=== PATIENT | female | born 1995 | race Hispanic/Latino ===

== ENCOUNTER 2018-07-13 02:04 | Emergency (ER) | payer SELFPAY ==
[2018-07-13 02:28] VITALS: BMI 38.6
--- NOTE | 2018-07-13 02:34 | ED PDOC ---
Arrival/HPI - General Time Seen by Provider: 07/13/18 02:05 Historian: Patient - History of Present Illness Narrative History of Present Illness (Text): 07/13/18 02:35 22 year old female, with no significant past medical history, presents to the emergency department complaining of right upper abdominal pain that began tonight. Patient denies any fever, chills, chest pain, shortness of breath, nausea, vomiting, diarrhea, urinary symptoms, back pain, neck pain, headache, dizziness, or any other complaints. Time/Duration: Other (tonight) Symptom Onset: Sudden Symptom Course: Unchanged Activities at Onset: Light Context: Home Past Medical History - Provider Review Nursing Documentation Reviewed: Yes Family/Social History - Physician Review Nursing Documentation Reviewed: Yes Family/Social History: No Known Family HX Allergies/Home Meds Allergies/Adverse Reactions: Allergies nitrofurantoin [From Macrobid] Allergy (Verified 07/13/18 02:28) RASH Sulfa (Sulfonamide Antibiotics) Allergy (Verified 07/13/18 02:28) RASH Home Medications: Home Meds Medication Instructions Recorded Confirmed Topiramate [Topamax] 25 mg PO BID 07/13/18 07/13/18 Review of Systems - Physician Review All systems were reviewed & negative as marked: Yes - Review of Systems Constitutional: absent: Fevers, Other (Chills) Respiratory: absent: SOB Cardiovascular: absent: Chest Pain Gastrointestinal: Abdominal Pain. absent: Diarrhea, Nausea, Vomiting Genitourinary Female: absent: Dysuria, Frequency, Hematuria Musculoskeletal: absent: Back Pain, Neck Pain Neurological: absent: Headache, Dizziness Physical Exam Vital Signs Reviewed: Yes Vital Signs Temp Pulse Resp BP Pulse Ox 07/13/18 05:05 98.4 F 58 L 18 118/63 98 07/13/18 04:32 98.2 F 59 L 16 111/52 L 97 07/13/18 03:59 99.2 F 64 16 121/65 100 07/13/18 02:37 99.4 F 80 16 123/73 97 Temperature: Afebrile Blood Pressure: Normal Pulse: Regular Respiratory Rate: Normal Appearance: Positive for: Well-Appearing, Non-Toxic, Comfortable Pain Distress: None Mental Status: Positive for: Alert and Oriented X 3 - Systems Exam Head: Present: Atraumatic, Normocephalic Pupils: Present: PERRL Extroacular Muscles: Present: EOMI Conjunctiva: Present: Normal Mouth: Present: Moist Mucous Membranes Neck: Present: Normal Range of Motion Respiratory/Chest: Present: Clear to Auscultation, Good Air Exchange. No: Respiratory Distress, Accessory Muscle Use Cardiovascular: Present: Regular Rate and Rhythm, Normal S1, S2. No: Murmurs Abdomen: Present: Tenderness (Right upper quadrant). No: Distention, Peritoneal Signs Back: Present: Normal Inspection Upper Extremity: Present: Normal Inspection. No: Cyanosis, Edema Lower Extremity: Present: Normal Inspection. No: Edema Neurological: Present: GCS=15, CN II-XII Intact, Speech Normal Skin: Present: Warm, Dry, Normal Color. No: Rashes Psychiatric: Present: Alert, Oriented x 3, Normal Insight, Normal Concentration Medical Decision Making ED Course and Treatment: 07/13/18 02:34 Impression: 22 year old female presents complaining of right upper abdominal pain that began tonight. Plan: -- Labs -- POC Urine Test -- UA -- reassess and disposition Progress Notes: EXAM: US Abdomen Limited, Right Upper Quadrant Dictated and Authenticated by: Jose Fowler MD 07/13/2018 4:55 AM IMPRESSION: Gallbladder stones are seen largest approximately 8 mm. 07/13/18 05:11 On re-evaluation, patient feels better and is in no acute distress. I have discussed the results and plan with the patient, who expresses understanding. Patient in agreement with plan to be discharged home. Patient is stable for discharge. Patient was instructed to follow up with physician or return if symptoms worsen or new concerning symptoms arise. - Lab Interpretations Microbiology Results: Microbiology Results 07/13/18 02:40 Urine,Clean Catch Urine Culture - Final No Growth (<1,000 CFU/ML) Lab Results: 07/13/18 03:00 07/13/18 03:00 Lab Results 07/13/18 03:00: Sodium 141, Potassium 3.9, Chloride 108 H, Carbon Dioxide 22, Anion Gap 15, BUN 10, Creatinine 0.9, Est GFR ( Amer) > 60, Est GFR (Non- Af Amer) > 60, Random Glucose 98, Calcium 9.5, Magnesium 2.3 H, Total Bilirubin 0.3, AST 19, ALT 20, Alkaline Phosphatase 53, Total Protein 7.5, Albumin 4.2, Globulin 3.3, Albumin/Globulin Ratio 1.3, Lipase 57 07/13/18 03:00: PT 11.6, INR 1.02, APTT 24.6 L 07/13/18 03:00: WBC 6.6, RBC 4.48, Hgb 12.5, Hct 38.1, MCV 85.0, MCH 27.9, MCHC 32.8, RDW 12.9, Plt Count 272, MPV 10.4, Gran % 57.3, Lymph % (Auto) 35.9 H, [place] % (Auto) 5.3, Eos % (Auto) 1.2 L, Baso % (Auto) 0.3, Gran # 3.80, Lymph # ( Auto) 2.4, [place] # (Auto) 0.4, Eos # (Auto) 0.1, Baso # (Auto) 0.02 07/13/18 02:40: Urine Color Light yellow, Urine Appearance Cloudy, Urine pH 6.5 , Ur Specific [place] 1.025, Urine Protein Trace H, Urine Glucose (UA) Negative , Urine Ketones Negative, Urine Blood Small H, Urine Nitrate Negative, Urine Bilirubin Negative, Urine Urobilinogen 0.2, Ur Leukocyte Esterase Moderate H, Urine RBC 1 - 3, Urine WBC 10 - 15, Ur Epithelial Cells 3 - 4, Urine Bacteria Small I have reviewed the lab results: Yes - RAD Interpretation Radiology Orders: 07/13/18 02:47 GALL BLADDER [US] Stat - Medication Orders Current Medication Orders: Discontinued Medications Sodium Chloride (Sodium Chloride 0.9%) 1,000 mls @ 80 mls/hr IV .[id number] Last Admin: 07/13/18 03:07 Dose: 80 mls/hr eMAR Start Stop Document 07/13/18 03:07 (Rec: 07/13/18 03:07 [id number] Intravenous Solution Start Date 07/13/18 Start Time 03:07 Ketorolac Tromethamine (Toradol) 15 mg IVP ONCE ONE Stop: 07/13/18 02:49 Last Admin: 07/13/18 02:55 Dose: 15 mg MAR Pain Assessment Document 07/13/18 02:55 (Rec: 07/13/18 03:05 [id number] Pain Reassessment Is this a pain reassessment? Yes Location Upper or Lower Upper Pain Location Body Site Abdomen Description Pain Behavior Rubbing Site IVP Administration Document 07/13/18 02:55 RG (Rec: 07/13/18 03:05 [id number]) Charges for Administration # of IVP Administrations 1 Ondansetron HCl (Zofran Inj) 4 mg IVP STAT STA Stop: 07/13/18 02:49 Last Admin: 07/13/18 03:05 Dose: 4 mg IVP Administration Document 07/13/18 03:05 RG (Rec: 07/13/18 03:07 [id number]) Charges for Administration # of IVP Administrations 1 - Scribe Statement The provider has reviewed the documentation as recorded by the Thee Shoemaker Provider Scribe Attestation: All medical record entries made by the Scribe were at my direction and personally dictated by me. I have reviewed the chart and agree that the record accurately reflects my personal performance of the history, physical exam, medical decision making, and the department course for this patient. I have also personally directed, reviewed, and agree with the discharge instructions and disposition. Disposition/Present on Arrival - Present on Arrival Any Indicators Present on Arrival: No - Disposition Have Diagnosis and Disposition been Completed?: Yes Diagnosis: Biliary colic Disposition: HOME/ ROUTINE Disposition Time: 05:30 Condition: IMPROVED Discharge Instructions (ExitCare): Gallstones Referrals: Gomez Banks MD [Medical Doctor] - Follow up with primary FAMILY PROVIDER,NO [Primary Care Provider] - Follow up with primary Renetta Cerda MD [Medical Doctor] - Follow up with primary
[2018-07-13 02:58] LABS: PH,URINE 6.5 (4.7-8.0); URINE BILIRUBIN NEGATIVE (NEGATIVE); URINE BLOOD SMALL (NEGATIVE); URINE GLUCOSE (UA) NEGATIVE (NEGATIVE); URINE LEUKOCYTE ESTERASE MODERATE Leu/uL (NEGATIVE); URINE PROTEIN TRACE mg/dL (<30 mg/dL); URINE UROBILINOGEN 0.2 E.U./dL (<1 E.U./dL)
[2018-07-13] MEDS ORDERED: Sodium Chloride 0.9% 1,000 ML IV SCH (03:00)
[2018-07-13 03:06] LABS: URINE APPEARANCE CLOUDY (CLEAR); URINE COLOR LIGHT YELLOW (YELLOW)
[2018-07-13 03:15] LABS: BASO # 0.02 K/mm3 (0.0-2.0); BASO % 0.3 % (0.0-3.0); EOS # 0.1 (0.0-0.7); EOS % 1.2 % (1.5-5.0); GRAN # 3.8 (1.4-6.5); GRAN % 57.3 % (50.0-68.0); HEMOGLOBIN 12.5 g/dL (12.0-16.0); LYMPH # 2.4 (1.2-3.4); LYMPH % 35.9 % (22.0-35.0); MEAN CORPUSCULAR HEMOGLOBIN 27.9 pg (25.0-35.0); MEAN CORPUSCULAR HGB CONC 32.8 g/dl (31.0-37.0); MEAN PLATELET VOLUME 10.4 fl (7.0-11.0); MONO # 0.4 (0.1-0.6); MONO % 5.3 % (1.0-6.0); RBC 4.48 10^6/uL (3.5-6.1); RED CELL DISTRIBUTION WIDTH 12.9 % (11.5-14.5); WHITE BLOOD COUNT 6.6 10^3/ul (4.5-11.0)
[2018-07-13 03:16] LABS: URINE BACTERIA SMALL (NEG)
[2018-07-13 03:29] LABS: ALB/GLOB RATIO 1.3 (1.1-1.8); ALBUMIN 4.2 g/dL (3.0-4.8); ALT/SGPT 20 U/L (7-56); AST/SGOT 19 U/L (14-36); BLOOD UREA NITROGEN 10 mg/dL (7-21); CALCIUM 9.5 mg/dL (8.4-10.5); GFR NON-AFRICAN AMERICAN > 60; LIPASE 57 U/L (23-300)
[2018-07-13 03:43] LABS: INR 1.02; PARTIAL THROMBOPLASTIN TIME 24.6 Seconds (25.1-36.5); PROTHROMBIN TIME 11.6 SECONDS (9.4-12.5)
[2018-07-13 06:16] VITALS: BP 118/63; PULSE 58; RESP 18; TEMP 98.4; O2SAT 98
--- NOTE | 2018-07-13 08:03 | US ---
EXAM: US Abdomen Limited, Right Upper Quadrant CLINICAL HISTORY: 22 years old, female; Pain; Other: Ruq; Patient HX: Nausea; Additional info: Ruq pain TECHNIQUE: Real-time ultrasound of the right upper quadrant with image documentation. COMPARISON: No relevant prior studies available. FINDINGS: Liver: 16 cm. No mass. No intrahepatic bile duct dilation. Gallbladder: Gallbladder stones are seen largest approximately 8 mm. No gallbladder wall thickening. Common bile duct: Top normal at 4-5 mm. No stones. No dilation. Pancreas: Visualized pancreas appear normal. Pancreatic tail obscured by bowel gas. Right kidney: 10.4 x 3.0 x 6.0 cm. Cortical medullary junction differentiation maintained. No cortical thinning. No hydronephrosis. No shadowing stones. IMPRESSION: Gallbladder stones are seen largest approximately 8 mm.
== END 2018-07-13 05:20 | disposition home or self-care (01) ==
LOC: ED 02:04
DX: K80.50 Calculus of bile duct without cholangitis or cholecystitis without obstruction (principal)
CPT/HCPCS: 76705; 80053; 81001; 83690; 83735; 85025; 85610; 85730; 87086; 96374; 96375; 99284; J1885; J2405; J7030

== ENCOUNTER 2018-10-17 14:24 | Emergency (ER) | payer SELFPAY ==
[2018-10-17 14:25] VITALS: BMI 38.6
[2018-10-17 15:22] VITALS: RESP 18; TEMP 98.5
--- NOTE | 2018-10-17 15:24 | ED PDOC ---
Arrival/HPI - General Chief Complaint: ENT Problem Time Seen by Provider: 10/17/18 14:54 Historian: Patient - History of Present Illness Narrative History of Present Illness (Text): 10/17/18 15:19 23yo female with pmhx of Fibromyalgia, RA who present with complaint of sore throat x 4days. She reports multiple history of tonsillitis in the past. She denies odynophagia, dysphagia, hoarseness, drooling, fever, chills, nausea, vom iting, abdominal pain, any other complaint. Past Medical History - Provider Review Nursing Documentation Reviewed: Yes - Infectious Disease Hx of Infectious Diseases: None - Reproductive Menopause: No - Cardiac Hx Cardiac Disorders: No - Pulmonary Hx Respiratory Disorders: Yes Hx Asthma: Yes - Neurological Hx Neurological Disorder: No - HEENT Hx HEENT Disorder: No - Renal Hx Renal Disorder: Yes Hx Kidney Stones: Yes - Endocrine/Metabolic Hx Endocrine Disorders: Yes Hx Hypothyroidism: Yes - Hematological/Oncological Hx Blood Disorders: No - Integumentary Hx Dermatological Disorder: No - Musculoskeletal/Rheumatological Hx Musculoskeletal Disorders: No - Gastrointestinal Hx Vomiting: Yes - Psychiatric Hx Psychophysiologic Disorder: Yes Hx Anxiety: Yes Hx Bipolar Disorder: Yes Hx Depression: Yes Hx Emotional Abuse: No Hx Substance Use: No - Surgical History Hx Section: Yes - Anesthesia Hx Anesthesia: No Family/Social History - Physician Review Nursing Documentation Reviewed: Yes Family/Social History: Unknown Family HX Smoking Status: Never Smoked Hx Alcohol Use: No Hx Substance Use: No Allergies/Home Meds Allergies/Adverse Reactions: Allergies nitrofurantoin [From Macrobid] Allergy (Verified 07/13/18 02:28) RASH Sulfa (Sulfonamide Antibiotics) Allergy (Verified 07/13/18 02:28) RASH Home Medications: Home Meds Medication Instructions Recorded Confirmed Topiramate [Topamax] 25 mg PO BID 07/13/18 07/13/18 Review of Systems - Physician Review All systems were reviewed & negative as marked: Yes - Review of Systems Constitutional: Normal Eyes: Normal ENT: Sore Throat Respiratory: Normal Cardiovascular: Normal Gastrointestinal: Normal Genitourinary Female: Normal Musculoskeletal: Normal Skin: Normal Neurological: Normal Endocrine: Normal Hemo/Lymphatic: Normal Psychiatric: Normal Physical Exam Vital Signs Reviewed: Yes Temperature: Afebrile Blood Pressure: Normal Pulse: Regular Respiratory Rate: Normal Appearance: Positive for: Well-Appearing, Non-Toxic, Comfortable Pain Distress: None Mental Status: Positive for: Alert and Oriented X 3 - Systems Exam Head: Present: Atraumatic, Normocephalic Pupils: Present: PERRL Extroacular Muscles: Present: EOMI Conjunctiva: Present: Normal Mouth: Present: Moist Mucous Membranes Pharnyx: Present: ERYTHEMA, EXUDATE, TONSILS ENLARGED. No: Peritonsilar Swelling, Uvular Deviation, Muffled/Hoarse Voice, [place] Neck: Present: Normal Range of Motion Respiratory/Chest: Present: Clear to Auscultation, Good Air Exchange. No: Respiratory Distress, Accessory Muscle Use Cardiovascular: Present: Regular Rate and Rhythm, Normal S1, S2. No: Murmurs Abdomen: No: Tenderness, Distention, Peritoneal Signs Back: Present: Normal Inspection Upper Extremity: Present: Normal Inspection. No: Cyanosis, Edema Lower Extremity: Present: Normal Inspection. No: Edema Neurological: Present: GCS=15, CN II-XII Intact, Speech Normal Skin: Present: Warm, Dry, Normal Color. No: Rashes Psychiatric: Present: Alert, Oriented x 3, Normal Insight, Normal Concentration Disposition/Present on Arrival - Present on Arrival Any Indicators Present on Arrival: No History of DVT/PE: No History of Uncontrolled Diabetes: No Urinary Catheter: No History of Decub. Ulcer: No History Surgical Site Infection Following: None - Disposition Have Diagnosis and Disposition been Completed?: Yes Diagnosis: Acute tonsillitis Disposition: HOME/ ROUTINE Disposition Time: 15:25 Patient Plan: Discharge Condition: STABLE Discharge Instructions (ExitCare): Bacterial Upper Respiratory Infection, Adult Additional Instructions: Follow up with your Doctor Return to ED for any new or worsening symptoms Prescriptions: Penicillin VK [Penicillin VK Tab] 500 mg PO BID #14 tab Referrals: Renetta Cerda MD [Medical Doctor] - Follow up with primary
[2018-10-17 17:01] VITALS: BP 117/51; PULSE 72; O2SAT 99
== END 2018-10-17 17:04 | disposition home or self-care (01) ==
LOC: ED 14:24
DX: J03.90 Acute tonsillitis, unspecified (principal)
CPT/HCPCS: 96372; 99283; J1100

== ENCOUNTER 2018-10-28 14:18 | Emergency (ER) | payer MEDICAID, OTHER ==
[2018-10-28 14:35] VITALS: BMI 42.5
[2018-10-28 14:42] VITALS: O2SAT 100
--- NOTE | 2018-10-28 15:13 | ED PDOC ---
Arrival/HPI <Golden Flor - Last Filed: 10/28/18 19:12> - General Historian: Patient - History of Present Illness Narrative History of Present Illness (Text): 10/28/18 15:09 Patient is a 29 yr old female with pmh of hypothyroidism who presents with swelling in her hands and feet, dizziness, and Nausea/vomiting for the past few days. patient states she has also been experiencing chills with the nausea episodes. She occasionally experiences SOB with the dizziness, and n/v. Patient is sexually active and is concerned she may be , LMP 10/06/18. Patient otherwise denies PRIETO, CP, abdominal pain, fevers, stool changes, dysuria, vaginal bleeding, vaginal discharge, and extremity weakness/pain. PMH: hypothyroidism (no medications) PSH: C section All: macrobid, sulfa Time/Duration: 1 week Symptom Onset: Other (intermittent) Symptom Course: Intermittent <Matilda Snider - Last Filed: 10/28/18 20:58> - General Chief Complaint: Dizziness/Lightheaded Time Seen by Provider: 10/28/18 14:25 Past Medical History - Provider Review Nursing Documentation Reviewed: Yes - Infectious Disease Hx of Infectious Diseases: None - Reproductive Currently : Unknown - Cardiac Hx Cardiac Disorders: No - Pulmonary Hx Respiratory Disorders: Yes Hx Asthma: Yes - Neurological Hx Neurological Disorder: No - HEENT Hx HEENT Disorder: No - Renal Hx Renal Disorder: Yes Hx Kidney Stones: Yes - Endocrine/Metabolic Hx Endocrine Disorders: Yes Hx Hypothyroidism: Yes - Hematological/Oncological Hx Blood Disorders: No - Integumentary Hx Dermatological Disorder: No - Musculoskeletal/Rheumatological Hx Musculoskeletal Disorders: No - Gastrointestinal Hx Vomiting: Yes - Psychiatric Hx Psychophysiologic Disorder: Yes Hx Anxiety: Yes Hx Bipolar Disorder: Yes Hx Depression: Yes Hx Emotional Abuse: No Hx Substance Use: No - Surgical History Hx Section: Yes - Anesthesia Hx Anesthesia: No Hx Anesthesia Reactions: No Hx Malignant Hyperthermia: No <Matilda Snider - Last Filed: 10/28/18 20:58> Family/Social History - Physician Review Nursing Documentation Reviewed: Yes Family/Social History: Unknown Family HX Smoking Status: Never Smoked Hx Alcohol Use: No Hx Substance Use: No <Matilda Snider - Last Filed: 10/28/18 20:58> Allergies/Home Meds <Golden Flor - Last Filed: 10/28/18 19:12> <Matilda Snider - Last Filed: 10/28/18 20:58> Allergies/Adverse Reactions: Allergies nitrofurantoin [From Macrobid] Allergy (Verified 07/13/18 02:28) RASH Sulfa (Sulfonamide Antibiotics) Allergy (Verified 07/13/18 02:28) RASH Home Medications: Home Meds Medication Instructions Recorded Confirmed Topiramate [Topamax] 25 mg PO BID 07/13/18 07/13/18 Review of Systems - Physician Review All systems were reviewed & negative as marked: Yes - Review of Systems Constitutional: Normal. absent: Fatigue Respiratory: Normal. absent: SOB, Cough Cardiovascular: Normal. absent: Chest Pain, Edema Gastrointestinal: Normal. absent: Abdominal Pain, Nausea, Vomiting Genitourinary Female: absent: Dysuria, Frequency, Hematuria, Vaginal Bleeding, Vaginal Discharge Musculoskeletal: absent: Back Pain, Joint Swelling Skin: Normal Neurological: absent: Headache Psychiatric: Normal <Matilda Snider - Last Filed: 10/28/18 20:58> Physical Exam Vital Signs Temp Pulse Resp BP Pulse Ox 10/28/18 16:10 98.3 F 83 18 110/58 L 100 10/28/18 14:18 98.5 F 87 18 133/73 100 <Golden Flor - Last Filed: 10/28/18 19:12> Vital Signs Temp Pulse Resp BP Pulse Ox 10/28/18 14:18 98.5 F 87 18 133/73 100 Temperature: Afebrile Blood Pressure: Normal Pulse: Regular Respiratory Rate: Normal Appearance: Positive for: Well-Appearing, Non-Toxic, Comfortable Pain Distress: None Mental Status: Positive for: Alert and Oriented X 3 - Systems Exam Head: Present: Atraumatic, Normocephalic Pupils: Present: PERRL Extroacular Muscles: Present: EOMI Mouth: Present: Moist Mucous Membranes Respiratory/Chest: Present: Clear to Auscultation. No: Respiratory Distress, Accessory Muscle Use Cardiovascular: Present: Regular Rate and Rhythm, Normal S1, S2. No: Murmurs Abdomen: No: Tenderness, Distention, Peritoneal Signs, Rebound, Guarding Upper Extremity: Present: Normal Inspection. No: Cyanosis, Edema Lower Extremity: Present: Normal Inspection. No: Edema Neurological: Present: GCS=15, CN II-XII Intact, Speech Normal Skin: Present: Warm, Dry, Normal Color. No: Rashes Psychiatric: Present: Alert, Oriented x 3 <Matilda Snider - Last Filed: 10/28/18 20:58> Medical Decision Making ED Course and Treatment: Impression: Possible vs orthostatic hypotension Plan: cbc, cmp, urine preg, IVF Orthostatics vitals positive for orthostatic hypotension patient refusing IVF treatment pt informed of risks of not undergoing treatment pt expresses understanding of risks and still refusing treatment 10/28/18 17:50 10/28/18 19:08 Urine HCG qual negative, opt continuing to refuse fluids and requesting dis charge with knowledge of medical advice 10/28/18 19:15 10/28/18 19:16 Reassessment Condition: Re-examined, Unchanged - Lab Interpretations Narrative Lab Interpretation (Text): test negative, cbc WNL, CMP WNL 10/28/18 17:28 Interpretation: All labs normal <Matilda Snider - Last Filed: 10/28/18 20:58> Disposition/Present on Arrival <Golden Flor - Last Filed: 10/28/18 19:12> - Present on Arrival Any Indicators Present on Arrival: No History of DVT/PE: No History of Uncontrolled Diabetes: No Urinary Catheter: No History of Decub. Ulcer: No History Surgical Site Infection Following: None - Disposition Have Diagnosis and Disposition been Completed?: Yes Disposition Time: 19:27 Patient Plan: Discharge <Matilda Snider - Last Filed: 10/28/18 20:58> - Disposition Diagnosis: Orthostatic hypotension Disposition: HOME/ ROUTINE Condition: STABLE Discharge Instructions (ExitCare): Orthostatic Hypotension, Orthostatic Hypotension (DC) Print Language: [place] Additional Instructions: Please follow up with your primary care provider within 3-5 days. you have been informed that the appropriate treatment for your condition is intravenous fluids and you have declined this treatment. Please return to the nearest Emergency department if symptoms persist or worsen. Referrals: Renetta Cerda MD [Medical Doctor] - Follow up with primary [facility] [Outside] - Follow up with primary Forms: [employer] (Macedonian)
[2018-10-28 16:11] VITALS: TEMP 98.3
[2018-10-28 16:43] LABS: BASO # 0.02 K/mm3 (0.0-2.0); BASO % 0.2 % (0.0-3.0); EOS # 0.1 (0.0-0.7); GRAN # 5.61 (1.4-6.5); GRAN % 66.7 % (50.0-68.0); HEMOGLOBIN 12.2 g/dL (12.0-16.0); LYMPH # 2.4 (1.2-3.4); LYMPH % 28.5 % (22.0-35.0); MEAN CELL VOLUME 84.7 fl (80.0-105.0); MEAN CORPUSCULAR HEMOGLOBIN 27.5 pg (25.0-35.0); MEAN CORPUSCULAR HGB CONC 32.4 g/dl (31.0-37.0); MEAN PLATELET VOLUME 9.9 fl (7.0-11.0); MONO # 0.3 (0.1-0.6); MONO % 3.6 % (1.0-6.0); RBC 4.44 10^6/uL (3.5-6.1); RED CELL DISTRIBUTION WIDTH 13.5 % (11.5-14.5); WHITE BLOOD COUNT 8.4 10^3/uL (4.5-11.0)
[2018-10-28 16:56] LABS: ALB/GLOB RATIO 1.4 (1.1-1.8); ALBUMIN 4.4 g/dL (3.0-4.8); ALT/SGPT 30 U/L (7-56); AST/SGOT 20 U/L (14-36); BLOOD UREA NITROGEN 9 mg/dL (7-21); CALCIUM 9.5 mg/dL (8.4-10.5); GFR NON-AFRICAN AMERICAN > 60
[2018-10-28] MEDS ORDERED: Sodium Chloride 0.9% 1,000 ML IV STA (17:17)
[2018-10-28 19:34] VITALS: BP 120/73; PULSE 78; RESP 16
== END 2018-10-28 19:33 | disposition home or self-care (01) ==
LOC: ED 14:18
DX: I95.1 Orthostatic hypotension (principal); E03.9 Hypothyroidism, unspecified; F31.9 Bipolar disorder, unspecified

== ENCOUNTER 2018-11-19 16:41 | Emergency (ER) | payer MEDICAID ==
[2018-11-19 16:48] VITALS: TEMP 98.4; O2SAT 100; BMI 42.0
--- NOTE | 2018-11-19 17:40 | ED PDOC ---
Arrival/HPI - General Chief Complaint: Trauma Time Seen by Provider: 11/19/18 16:42 Historian: Patient - History of Present Illness Narrative History of Present Illness (Text): 11/19/18 17:31 23 y/o female, pmh including orthostatic hypotension, allergic to macrobid and sulfa, c/o lt. knee pain s/p fall and twisted about 2 hours ago at home. Pt. stated that she has no shoulder injury, no neck/back/head/facial/chest/abdomen or other injury, no night sweat, no rash, no numbness or tingling, no change in vision, no other medical or psychological complaints. Past Medical History - Provider Review Nursing Documentation Reviewed: Yes - Infectious Disease Hx of Infectious Diseases: None - Reproductive Menopause: No - Cardiac Hx Cardiac Disorders: No - Pulmonary Hx Respiratory Disorders: Yes Hx Asthma: Yes - Neurological Hx Neurological Disorder: No - HEENT Hx HEENT Disorder: No - Renal Hx Renal Disorder: Yes Hx Kidney Stones: Yes - Endocrine/Metabolic Hx Endocrine Disorders: Yes Hx Hypothyroidism: Yes - Hematological/Oncological Hx Blood Disorders: No - Integumentary Hx Dermatological Disorder: No - Musculoskeletal/Rheumatological Hx Musculoskeletal Disorders: No - Gastrointestinal Hx Vomiting: Yes - Psychiatric Hx Psychophysiologic Disorder: Yes Hx Anxiety: Yes Hx Bipolar Disorder: Yes Hx Depression: Yes Hx Emotional Abuse: No Hx Substance Use: No - Surgical History Hx Section: Yes - Anesthesia Hx Anesthesia: No Hx Anesthesia Reactions: No Hx Malignant Hyperthermia: No Family/Social History - Physician Review Nursing Documentation Reviewed: Yes Family/Social History: Unknown Family HX Smoking Status: Never Smoked Hx Alcohol Use: No Hx Substance Use: No Allergies/Home Meds Allergies/Adverse Reactions: Allergies nitrofurantoin [From Macrobid] Allergy (Verified 07/13/18 02:28) RASH Sulfa (Sulfonamide Antibiotics) Allergy (Verified 07/13/18 02:28) RASH Home Medications: Home Meds Medication Instructions Recorded Confirmed Topiramate [Topamax] 25 mg PO BID 07/13/18 07/13/18 Review of Systems - Review of Systems Constitutional: absent: Fatigue, Fevers Eyes: absent: Vision Changes ENT: absent: Hearing Changes Respiratory: absent: SOB, Cough Cardiovascular: absent: Chest Pain Gastrointestinal: absent: Abdominal Pain, Diarrhea, Nausea, Vomiting Musculoskeletal: Arthralgias. absent: Back Pain, Neck Pain, Joint Swelling Skin: absent: Rash, Pruritis, Skin Lesions Neurological: absent: Headache, Dizziness Psychiatric: absent: Anxiety, Depression, Suicidal Ideation Physical Exam Vital Signs Reviewed: Yes Vital Signs Temp Pulse Resp BP Pulse Ox 11/19/18 16:45 98.4 F 90 18 132/83 100 Temperature: Afebrile Blood Pressure: Normal Pulse: Regular Respiratory Rate: Normal Appearance: Positive for: Well-Appearing, Non-Toxic, Comfortable Pain Distress: Mild Mental Status: Positive for: Alert and Oriented X 3 - Systems Exam Head: Present: Atraumatic, Normocephalic, Other (no facial tenderness). No: Tenderness, Contusion, Swelling, Ecchymosis, Abrasion, Laceration Pupils: Present: PERRL Extroacular Muscles: Present: EOMI Conjunctiva: Present: Normal Ears: Present: NORMAL TM, Normal Canal. No: Erythema Mouth: Present: Moist Mucous Membranes Nose (External): Present: Atraumatic. No: Abrasion, Contusion, Laceration Nose (Internal): Present: Normal Inspection, No Active Bleeding. No: Rhinorrhea, Septal Deviation, Septal Hematoma, Epistaxis Neck: Present: Normal Range of Motion Respiratory/Chest: Present: Clear to Auscultation, Good Air Exchange. No: Respiratory Distress, Accessory Muscle Use Cardiovascular: Present: Regular Rate and Rhythm, Normal S1, S2. No: Murmurs Abdomen: No: Tenderness, Distention, Peritoneal Signs Back: Present: Normal Inspection Upper Extremity: Present: Normal Inspection, NORMAL PULSES, Capillary Refill < 2s, Deformity, Other (Bilateral shoulders: no tenderness or swelling, FROM without limitation, sensation intact, motor 5/5, +radial pulse, capillary refill< 2 sconds, neurovascular intact. ). No: Cyanosis, Edema Lower Extremity: Present: Normal Inspection, NORMAL PULSES, Neurovascularly Intact, Other (Lt. knee: very mild +ttp on the lateral knee region, no swelling, negative aurelia and gasca signs, FROM without limitation, sensation intact, motor 5/5, ). No: Edema, Tenderness, Swelling Neurological: Present: GCS=15, CN II-XII Intact, Speech Normal, Motor Func Grossly Intact, Gait Normal, Memory Normal Skin: Present: Warm, Dry, Normal Color. No: Rashes Lymphatic: No: Cervical Adenopathy, Axillary Adenopathy Psychiatric: Present: Alert, Oriented x 3, Normal Insight, Normal Concentration Medical Decision Making ED Course and Treatment: 11/19/18 17:46 -Urine hcg -tylenol -xray -no indication for xray for shoulder as the exam is unremarkable. 11/19/18 18:44 -Urine hcg is negative -Lt. knee xray No demonstrated fracture or dislocation. -Xray result discussed with the patient, jo-ann wrap and crutches, advised MRI of the left knee if pain persist. -Discharge home with duexis, jo-ann wrap, cane, ice compression, non-weight bearing, follow up with your own pmd and orthopedic within 2 days, return to the ER for any new or worsening signs or symptoms. - RAD Interpretation Radiology Orders: Date of service: 11/19/2018 PROCEDURE: Left Knee Radiographs. HISTORY: Pain. COMPARISON: None. FINDINGS: BONES: No acute fracture. JOINTS: Unremarkable. JOINT EFFUSION: None. OTHER FINDINGS: None. IMPRESSION: No demonstrated fracture or dislocation. Emergency Medical Technician/Driver: Radiologist - PA / CULINARY INSTRUCTOR / Resident Statement MD/DO has reviewed & agrees with the documentation as recorded. Disposition/Present on Arrival - Present on Arrival Any Indicators Present on Arrival: No History of DVT/PE: No History of Uncontrolled Diabetes: No Urinary Catheter: No History of Decub. Ulcer: No History Surgical Site Infection Following: None - Disposition Have Diagnosis and Disposition been Completed?: Yes Diagnosis: Knee injury, Arthralgia Disposition: HOME/ ROUTINE Disposition Time: 18:46 Patient Plan: Discharge Condition: IMPROVED Additional Instructions: -Discharge home with duexis, jo-ann wrap, cane, ice compression, non-weight bearing, follow up with your own pmd and orthopedic within 2 days, return to the ER for any new or worsening signs or symptoms. Prescriptions: Ibuprofen/Famotidine [Duexis 26.6 mg-800 mg] 1 tab PO TID PRN #30 tab PRN Reason: Other Referrals: PCP,NO [Primary Care Provider] - Follow up with primary Roni Guy III, MD [Medical Doctor] - [place] [facility] [place] - Follow up with primary Forms: Jaunt (Andorran)
--- NOTE | 2018-11-19 18:42 | RAD ---
Date of service: 11/19/2018 PROCEDURE: Left Knee Radiographs. HISTORY: Pain. COMPARISON: None. FINDINGS: BONES: No acute fracture. JOINTS: Unremarkable. JOINT EFFUSION: None. OTHER FINDINGS: None. IMPRESSION: No demonstrated fracture or dislocation.
[2018-11-19 19:14] VITALS: BP 129/78; PULSE 88; RESP 16
== END 2018-11-19 19:15 | disposition home or self-care (01) ==
LOC: ED 16:41
DX: S89.92XA Unspecified injury of left lower leg, initial encounter (principal); W19.XXXA Unspecified fall, initial encounter; Y92.009 Unspecified place in unspecified non-institutional (private) residence as the place of occurrence of the external cause; M25.562 Pain in left knee; E03.9 Hypothyroidism, unspecified

== ENCOUNTER 2018-12-08 11:03 | Outpatient (CLI) | payer MEDICAID | END 2018-12-08 11:04 | disposition home or self-care (01) | LOC: LAB 11:03 | DX: E03.9 Hypothyroidism, unspecified (principal); Z00.00 Encounter for general adult medical examination without abnormal findings ==